=== PATIENT | male | born 1960 | race Hispanic/Latino ===

== ENCOUNTER 2025-10-14 09:23 | Outpatient (CLI) | payer BC, OTHER | END 2025-10-14 09:24 | disposition home or self-care (01) | LOC: SCSMRI 09:23 | PROVIDERS: ATTEND Orthopaedic Surgery | DX: R22.42 Localized swelling, mass and lump, left lower limb (principal); M71.22 Synovial cyst of popliteal space [Baker], left knee; M94.8X6 Other specified disorders of cartilage, lower leg ==